=== PATIENT | female | born 1935 | race Asian ===

== ENCOUNTER 2021-03-31 11:31 | Emergency (ER) | payer MEDICARE, OTHER, SELFPAY ==
[2021-03-31] VITALS (7 sets, daily range): BP systolic 148–180; BP diastolic 76–99; PULSE 82–88; RESP 18–53; TEMP 36.7; O2SAT 96–98
[2021-03-31 12:00] LABS: COVID19 -Nasal RAPID Negative (Negative)
--- NOTE | 2021-03-31 13:08 | ED.URI ---
HPI - URI/Sore Throat General Chief Complaint: Upper Respiratory Symptoms Stated Complaint: Coughing blood, ache in throat Time Seen by Provider: 03/31/21 12:53 Source: patient Mode of arrival: Ambulatory History of Present Illness HPI Narrative: Patient is a 85-year-old female with history of hypertension who presents with hemoptysis. She has had a couple episodes of hemoptysis coughing bright red on a tissue. She brings a tissue with her, it is bright red scant amount on tissue. She denies any shortness of breath body aches fever or chills. She occasionally has a sore throat. She denies any chest pain or palpitations. COVID test is negative. She denies any abdominal pain nausea or vomiting. Review of Systems Review of Systems Narrative: GENERAL: Denies chills, fatigue, malaise, fever, sweats, travel HEENT: Denies sinus pain, ear pain, sore throat, difficulty swallowing, neck pain RESPIRATORY: See HPI CARDIOVASCULAR: Denies chest pain, palpitations, orthopnea, edema GASTROINTESTINAL: Denies nausea, vomiting, abdominal pain, diarrhea, constipation, melena. : Denies dysuria, frequency, incontinence, hematuria, urinary retention, flank pain. MUSCULOSKELETAL: Denies weakness, joint pain, or bony pain SKIN: No rash, no erythema, no pruritus NEUROLOGIC: Denies weakness, dizziness, headache, numbness, change in speech, confusion PSYCHIATRIC: No concerning psychosocial issues. 12 point review of systems is negative except for those stated above and HPI Patient History Medical History Hypertension Social History Smoking Status: Former smoker Smoking Status: Former smoker alcohol intake frequency: 0-2 drinks per day Substance Use Type: does not use Exam Initial Vital Signs Initial Vital Signs: Vital Signs Temperature 98.1 F 03/31/21 11:34 Pulse Rate 88 03/31/21 11:34 Respiratory Rate 18 03/31/21 11:34 Blood Pressure 148/99 H 03/31/21 11:34 Pulse Oximetry 98 03/31/21 11:34 GENERAL: Alert well-appearing 85 year old female HEENT: Head atraumatic,EOMI, pupils reactive, face symmetric, [moist] mucous membranes CARDIOVASCULAR: Regular rate and rhythm without murmurs, rubs or gallops. RESPIRATORY: Breath sounds equal bilaterally, no wheezes rales or rhonchi. ABDOMEN: Soft, nontender. Normoactive bowel sounds all 4 quadrants. No guarding or rebound. EXTREMITIES: Normal range of motion, no clubbing or edema. Neurovascularly intact NEUROLOGICAL: Alert and oriented x4.Normal gait and speech. SKIN: Warm, dry, no laceration, no petechiae, no rashes or lesions. Scores PERC Score Age greater than or equal to 50 years: Yes Heart rate greater than or equal to 100 bpm: No Room Air O2 Sat less than 95%: No Unilateral leg swelling: No Recent trauma or surgery: No Hemoptysis: Yes Prior PE or DVT: No Hormone Use: No Total PERC Score: 2 Course Orders Ordered: ED Orders 03/31/21 11:39 COVID19 -Nasal swab/Pre-Proc Stat 03/31/21 13:12 Consult to Respiratory Therapy Evaluate & Treat EKG-12 Lead Stat 03/31/21 13:13 XR chest 1V Stat 03/31/21 13:25 BNP [NT-proBNP (BNP-Adult 18+)] Stat Complete Blood Count AUTO DIFF Stat Comprehensive Metabolic Panel Stat D Dimer Stat Partial Thromboplastin Time Stat Procalcitonin Stat Prothrombin Time INR Stat Troponin & CK Cardiac Panel Stat Vital Signs Vital signs: Vital Signs - 8 hr 03/31/21 11:34 03/31/21 13:34 Temperature 98.1 F Pulse Rate 88 82 Respiratory Rate 18 Blood Pressure 148/99 H 169/82 H Pulse Oximetry 98 97 MDM - URI/Sore Throat Lab Data Result diagrams: 03/31/21 13:25 03/31/21 13:25 Labs: Lab Results 03/31/21 03/31/21 03/31/21 Range/Units 11:39 13:25 13:25 WBC 8.5 (4.5-11.0) X10^3/uL RBC 4.29 (4.0-5.2) X10^6/uL Hgb 12.9 (12.0-16.0) g/dL Hct 38.8 (36-46) % MCV 90.3 (80-100) fL MCH 30.0 (26-34) PG MCHC 33.2 (30-36) % RDW 13.3 (11.6-14.8) % Plt Count 241 (150-400) X10^3/uL Neut % (Auto) 54.7 (50-75) % Lymph % (Auto) 32.7 (25-40) % [place] % (Auto) 6.4 (3-14) % Eos % (Auto) 5.2 H (2-4) % Baso % (Auto) 1.0 (0-2) % Neut # (Auto) 4600 (8581-3299) /uL Lymph # (Auto) 2800 (5819-1331) /uL [place] # (Auto) 500 (0-900) /uL Eos # (Auto) 400 (0-450) /uL Baso # (Auto) 100 (0-100) /uL PT 11.9 (10.1-12.7) SECONDS INR 1.1 (0.9-1.3) APTT 36 (26.4-36.2) SECONDS D-Dimer < 200 (<230) ng/mL Sodium (137-145) mmol/L Potassium (3.4-5.1) mmol/L Chloride (98-107) mmol/L Carbon Dioxide (22-32) mmol/L BUN (7-17) mg/dL Creatinine (0.52-1.04) mg/dL Estimated GFR (>60) mL/min BUN/Creatinine Ratio (6-22) Glucose (80-110) mg/dL Calcium (8.4-10.2) mg/dL Total Bilirubin (0.2-1.3) mg/dL AST (14-36) IU/L ALT (<35) IU/L Alkaline Phosphatase (38-126) U/L Total Creatine Kinase (30-135) U/L CK-MB (CK-2) CK-MB (CK-2) Rel Index Troponin I (0.01-0.034) ng/mL NT-Pro-B Natriuret Pep (<450) pg/mL Total Protein (6.3-8.2) g/dL Albumin (3.5-5.0) g/dL Globulin (1.7-4.1) g/dL Albumin/Globulin Ratio (1.0-2.8) Procalcitonin (<0.5) ng/mL SARS-CoV-2 (PCR) Negative (Negative) 03/31/21 03/31/21 Range/Units 13:25 13:25 WBC (4.5-11.0) X10^3/uL RBC (4.0-5.2) X10^6/uL Hgb (12.0-16.0) g/dL Hct (36-46) % MCV (80-100) fL MCH (26-34) PG MCHC (30-36) % RDW (11.6-14.8) % Plt Count (150-400) X10^3/uL Neut % (Auto) (50-75) % Lymph % (Auto) (25-40) % [place] % (Auto) (3-14) % Eos % (Auto) (2-4) % Baso % (Auto) (0-2) % Neut # (Auto) (8767-4448) /uL Lymph # (Auto) (9313-2135) /uL [place] # (Auto) (0-900) /uL Eos # (Auto) (0-450) /uL Baso # (Auto) (0-100) /uL PT (10.1-12.7) SECONDS INR (0.9-1.3) APTT (26.4-36.2) SECONDS D-Dimer (<230) ng/mL Sodium 139 (137-145) mmol/L Potassium 4.4 (3.4-5.1) mmol/L Chloride 104 (98-107) mmol/L Carbon Dioxide 29 (22-32) mmol/L BUN 16 (7-17) mg/dL Creatinine 0.70 (0.52-1.04) mg/dL Estimated GFR > 60.0 (>60) mL/min BUN/Creatinine Ratio 22.9 H (6-22) Glucose 108 (80-110) mg/dL Calcium 10.1 (8.4-10.2) mg/dL Total Bilirubin 0.7 (0.2-1.3) mg/dL AST 29 (14-36) IU/L ALT 15 (<35) IU/L Alkaline Phosphatase 86 (38-126) U/L Total Creatine Kinase 84 (30-135) U/L CK-MB (CK-2) TNP CK-MB (CK-2) Rel Index TNP Troponin I < 0.012 (0.01-0.034) ng/mL NT-Pro-B Natriuret Pep 144 (<450) pg/mL Total Protein 8.2 (6.3-8.2) g/dL Albumin 4.6 (3.5-5.0) g/dL Globulin 3.6 (1.7-4.1) g/dL Albumin/Globulin Ratio 1.3 (1.0-2.8) Procalcitonin 0.06 (<0.5) ng/mL SARS-CoV-2 (PCR) (Negative) Imaging Data Chest x-ray: Radiologist's Impression: PROCEDURE:? XR CHEST 1V ? INDICATIONS:? Hemoptysis ? TECHNIQUE:? One view of the chest was acquired.? ? COMPARISON:? None. ? FINDINGS:? ? Surgical changes and devices:? None.? ? Lungs and pleura:? Airspace opacities are noted in left lower lung field .? Right lung is clear.? No pleural effusions or pneumothorax.? ? Mediastinum:? Mediastinal contours appear normal.? Heart size is normal.? ? Bones and chest wall:? No suspicious bony lesions.? Overlying soft tissues appear unremarkable.? ? IMPRESSION:? Airspace opacity in left lower lung field concerning for left lower lobe infiltrate .? Underlying malignant process cannot be excluded.? Clinical correlation and follow-up? until resolution is recommended. ? ? Dictated by: Royce Ellis M.D. on 03/31/2021 at 13:52 ? ? ECG Data Interpretation: Normal sinus rhythm rate 83 MO interval [address] changes or T-wave inversions MDM Narrative Medical decision making narrative: Patient does have small amount of hemoptysis only seen on tissue paper. No significant amount of hemoptysis. Hemodynamically stable. Chest x-ray is negative. Blood work is overall reassuring. D-dimer is negative along with procalcitonin. She does not have infectious symptoms. Chest x-ray does suggest possible infiltrate however it does not clinically correlate. D-dimer is less than 200, with a PERC of 2. She is not having fluid overload symptoms no vascular congestion noted on chest x-ray pro BNP is 144. Unlikely to be CHF. I discussed all findings with the patient and son, Education has been performed regarding treatment plan, diagnosis, warning signs and symptoms and all concerns have been addressed. Verbally agree with and understood all of the above. Discharge Plan Departure Patient Disposition: Home Clinical Impression: Hemoptysis Instructions: DI for Hemoptysis Activity Restrictions/Additional Instructions: *You have been diagnosed with coughing up blood *What to do: At the time no cause for coughing up blood. COVID test is negative. Blood work is reassuring. Chest x-ray does not show any abnormality. May also try humidifier to help with coughing as well. *Continue to take medications as directed Mucinex 1-2 tabs every 12 hours only if needed for cough *Follow up with your primary care provider in 2-3 days or call [phone] *Return to ER if you should have coughing up she half a cup to a cup at a time, increasing shortness of breath chest pain palpitations body aches or any new, worsening or concerning symptoms Referrals: Waldo Clark MD [Primary Care Provider] -
--- NOTE | 2021-03-31 13:13 | DI.RAD.S_ITS ---
PROCEDURE: XR CHEST 1V INDICATIONS: Hemoptysis TECHNIQUE: One view of the chest was acquired. COMPARISON: None. FINDINGS: Surgical changes and devices: None. Lungs and pleura: Airspace opacities are noted in left lower lung field . Right lung is clear. No pleural effusions or pneumothorax. Mediastinum: Mediastinal contours appear normal. Heart size is normal. Bones and chest wall: No suspicious bony lesions. Overlying soft tissues appear unremarkable. IMPRESSION: Airspace opacity in left lower lung field concerning for left lower lobe infiltrate . Underlying malignant process cannot be excluded. Clinical correlation and follow-up until resolution is recommended. Dictated by: Royce Ellis M.D. on 03/31/2021 at 13:52 Approved by: Royce Ellis M.D. on 03/31/2021 at 13:59
[2021-03-31 13:34] LABS: Add Manual Diff / Slide Review NO; Basophils Absolute Auto 100 /uL (0-100); Eosinophils Absolute Auto 400 /uL (0-450); Eosinophils Percent Auto 5.2 % (2-4); Hematocrit 38.8 % (36-46); Hemoglobin 12.9 g/dL (12.0-16.0); Lymphocytes Absolute Auto 2800 /uL (1100-4500); Lymphocytes Percent Auto 32.7 % (25-40); Mean Corpuscular HGB Conc 33.2 % (30-36); Mean Corpuscular Volume 90.3 fL (80-100); Monocytes Absolute Auto 500 /uL (0-900); Monocytes Percent Auto 6.4 % (3-14); Neutrophils Absolute Auto 4600 /uL (1500-7000); Neutrophils Percent Auto 54.7 % (50-75); Platelet Count 241 X10^3/uL (150-400); Red Blood Cell Count 4.29 X10^6/uL (4.0-5.2); Red Cell Distribution Width 13.3 % (11.6-14.8); White Blood Cell Count 8.5 X10^3/uL (4.5-11.0)
[2021-03-31 13:45] LABS: INR 1.1 (0.9-1.3); Prothrombin Time 11.9 SECONDS (10.1-12.7)
[2021-03-31 13:48] LABS: PTT Partial Thromboplastin Tim 36 SECONDS (26.4-36.2)
[2021-03-31 13:49] LABS: Creatine Kinase 84 U/L (30-135); D Dimer < 200 ng/mL (<230)
[2021-03-31 13:52] LABS: Alanine Aminotransferase 15 IU/L (<35); Albumin 4.6 g/dL (3.5-5.0); Albumin Globulin Ratio 1.3 (1.0-2.8); Alkaline Phosphatase 86 U/L (38-126); Aspartate Aminotransferase 29 IU/L (14-36); BUN Creatinine Ratio 22.9 (6-22); Bilirubin Total 0.7 mg/dL (0.2-1.3); Blood Urea Nitrogen 16 mg/dL (7-17); Calcium 10.1 mg/dL (8.4-10.2); Carbon Dioxide 29 mmol/L (22-32); Chloride 104 mmol/L (98-107); Estimated Glomerular Filt Rate > 60.0 mL/min (>60); Globulin 3.6 g/dL (1.7-4.1); Glucose 108 mg/dL (80-110); HEMOLYSIS < 15 (0-50); Potassium 4.4 mmol/L (3.4-5.1); Sodium 139 mmol/L (137-145); Total Protein 8.2 g/dL (6.3-8.2)
[2021-03-31 14:00] LABS: NT-proBNP (BNP-Adult 18+) 144 pg/mL (<450); Troponin I < 0.012 ng/mL (0.01-0.034)
[2021-03-31 14:09] LABS: Procalcitonin 0.06 ng/mL (<0.5)
== END 2021-03-31 15:03 | disposition home or self-care (01) ==
PROVIDERS: Emergency Provider Emergency Medicine; PCP Family Medicine
DX: R04.2 Hemoptysis (principal); Z87.891 Personal history of nicotine dependence; Z20.822 Contact with and (suspected) exposure to COVID-19
CPT/HCPCS: 36415; 71045; 80053; 82550; 83880; 84145; 84484; 85025; 85379; 85610; 85730; 87635; 93005; 99283; 99284; C9803